=== PATIENT | male | born 1950 | race Caucasian/White ===

== ENCOUNTER 2017-04-08 18:10 | Inpatient (IN) | payer MEDICARE ==
[~2017-04-08] VITALS: Ht 160 cm; Wt 85.4 kg
--- NOTE | ~2017-04-08 | CON ---
PATIENT'S NAME: ANDRE HERMOSILLO [facility] AGE: 66 Y [address] ROOM: [place] [address] LOCATION: CU ADMIT DATE: 04/08/2017 Consultation DISCHARGE DATE: FAMILY PHYSICIAN: Lev Meraz MD ATTENDING PHYSICIAN: Stacy HARRIS DATE OF CONSULTATION: 04/09/2017 REFERRING PHYSICIAN: Christi Calvillo This is a [facility] Nephrology consultation. REASON FOR CONSULTATION: Acute kidney injury on chronic kidney disease stage 3. HISTORY OF PRESENT ILLNESS: This is a 66-year-old male patient with a past medical history of COPD, rheumatoid arthritis, chronic back pain, and chronic steroid use, as well as hypertension. The patient reportedly sustained a fall at home after complaints of weakness and fatigue over the past 2 weeks. He was reportedly unable to get up at that time and was taken to the emergency room in [place], [place]. At that time, a workup did show a creatinine of 3.03 with a baseline creatinine of 1.2 to 1.3 per the record. The patient was found to have hypotension with systolic blood pressures in the 80s to 90s as well as white blood cell count of 18,000 with bandemia. The patient was given 3 L of IV fluid, and systolic blood pressures did come up to the 130s. He was also noted to have a low urinary outputs of approximately 30 mL/h. The patient does report that he has been on chronic prednisone therapy up until approximately 2 weeks ago when he was discontinued at 4 mg daily. At that time, he was started on meloxicam for his bilateral hand swelling and joint pain. Therefore due to the patient's acute kidney injury on chronic kidney disease stage 3 with a baseline creatinine of 1.2 to 1.3 and elevation of creatinine to 3.03, now 2.4, Dr. Calvillo has been asked to consult on the patient to monitor his acute kidney injury as well as history of chronic kidney disease stage 3. The patient does deny history of any urinary complaints or history of kidney stones. PAST MEDICAL HISTORY: As listed above includin. Acute kidney injury on CKD stage 3. 2. Rheumatoid arthritis, off chronic steroid use x2 weeks. 3. Chronic steroid use. PATIENT'S NAME: ANDRE HERMOSILLO [facility] AGE: 66 Y [address] ROOM: [place] [address] LOCATION: GICU ADMIT DATE: 04/08/2017 Consultation DISCHARGE DATE: FAMILY PHYSICIAN: Lev Meraz MD ATTENDING PHYSICIAN: Stacy HARRIS 4. History of COPD. 5. Hypertension. 6. Osteoarthritis. PAST SURGICAL HISTORY: C3-C4 fusion. FAMILY HISTORY: Reviewed and is noncontributory. There is no history of kidney disease or dialysis. The patient reports his father and his mother both had coronary artery disease. SOCIAL HISTORY: The patient does have a remote history of smoking; however, he quit approximately 10 years ago. He denies any alcohol use or illicit drug use. He is retired. ALLERGIES: NONE TO MEDICATION. CURRENT HOME MEDICATIONS: 1. Valium 5 mg every night at bedtime. 2. Ultram 50 mg by mouth every 4 hours p.r.n. pain. 3. Mobic 7.5 mg daily. 4. Pramipexole 0.125 mg by mouth daily. 5. Ranitidine 150 mg daily. 6. Zanaflex 4 mg by mouth daily. 7. Anoro Ellipta 1 puff inhalation daily. 8. Zestril 30 mg by mouth daily. 9. Fluticasone 1 spray each nostril daily. 10. Azelastine 137 mcg/0.137 mL 1 spray in each nostril twice a day. 11. Albuterol HFA 1 puff inhalation q.4 hours p.r.n. shortness of breath. 12. Aspirin 81 mg daily. 13. Cetirizine 10 mg daily. REVIEW OF SYSTEMS: GENERAL: Positive for fatigue and weakness. EYES: No double vision or blurred vision. NOSE: No epistaxis or rhinorrhea. MOUTH: No gingival bleeding. THROAT: No sore throat, hoarseness, but did have a productive cough with white sputum prior to arrival. RESPIRATORY: Positive for shortness of breath and dyspnea on exertion. Positive for orthopnea. CARDIOVASCULAR: Denies any chest pain or palpitations. Denies presyncope or PATIENT'S NAME: ANDRE HERMOSILLO [facility] AGE: 66 Y [address] ROOM: [place] [address] LOCATION: [facility] ADMIT DATE: 04/08/2017 Consultation DISCHARGE DATE: FAMILY PHYSICIAN: Lev Meraz MD ATTENDING PHYSICIAN: Stacy HARRIS syncope. GASTROINTESTINAL: Denies any nausea, vomiting, or diarrhea. Denies hematemesis or hematochezia. MUSCULOSKELETAL: Does complain of bilateral lower extremity weakness. Denies any new arthralgias or myalgias other than what is listed in the HPI. NEUROLOGICAL: Positive for lower extremity weakness. No numbness or tingling noted. Residual right lower extremity weakness from a prior surgery. HEMATOLOGICAL: No bruising or easy bleeding. IMMUNOLOGICAL: No history of recent infections. PSYCHIATRIC: Denies a history of depression or anxiety. LABORATORY DATA: The pH of 7.25, pCO2 of 38, pO2 of 95, HCO3 16.4, CO2 content is 18, base excess is -10, percent sat 96%, inflow is 2 L/minute. Lactate is 1.74. ProBNP is 3564. WBC is 22.2, hemoglobin 10.9, hematocrit 35.7, and platelets are 405. Glucose is 95, BUN is 40, creatinine 2.8, sodium 137, potassium 5.4, chloride is 107, CO2 is 18, calcium 7.9, albumin is 2.2. AST is 44, ALT is 26, alkaline phosphatase is 76, total bilirubin is 0.6. INR is 1.17. IMAGING DATA: Chest x-ray performed on admission noted cardiac silhouette is enlarged. Suboptimal inspiration and accentuating bronchovascular markings. I cannot exclude vascular congestion. There is no discrete focal infiltrate, pleural effusion, or pneumothorax identified. PHYSICAL EXAMINATION: VITAL SIGNS: Blood pressure is 110/68, pulse is 96, respirations 16, temperature 97.5, saturations are 96% on 2 L nasal cannula. GENERAL: On exam, the patient is lying in the bed, in no acute distress. He is alert and oriented to person, place, and time. HEENT: His head is normocephalic and atraumatic. Eyes: Pupils are equal and react briskly to light and accommodation. EOMs are intact. Corrective lenses are warm. Nose is midline. Mouth: No gingival bleeding. Oral mucosa is dry. LUNGS: Lung sounds are diminished in the bases bilaterally. Breaths are nonlabored. The patient is on 2 L nasal cannula. CARDIOVASCULAR: Tachycardic rhythm with apical heart rate of 112 beats per minute. Unable to appreciate any murmurs, rubs, or thrills. ABDOMEN: Soft, nontender, and nondistended. Bowel sounds are positive. EXTREMITIES: Show trace to 1+ lower extremity edema bilaterally, greater on the right than the left. SKIN: Warm to touch and dry. NEUROLOGIC: Cranial nerves 2 through 12 are grossly intact. ASSESSMENT AND PLAN: PATIENT'S NAME: ANDRE HERMOSILLO [facility] AGE: 66 Y [address] ROOM: [address] [address] LOCATION: [facility] ADMIT DATE: 04/08/2017 Consultation DISCHARGE DATE: FAMILY PHYSICIAN: Lev Meraz MD ATTENDING PHYSICIAN: Stacy HARRIS 1. Acute kidney injury on chronic kidney disease stage 3. This is likely prerenal etiology secondary to hypotension as well as NSAID plus BRANDON inhibitor use. We will obtain a renal ultrasound to further evaluate for obstruction that could be attributing to his acute kidney injury. At this time, Mobic and lisinopril are currently being held. We will continue to avoid all nephrotoxins at this time. Continue IV fluid with sodium bicarbonate for hydration. We will continue to maximize perfusion to the kidneys and limit hemodynamic instability. We will place the patient on strict intake and outputs as well as daily weights and monitor his urinary outputs closely. 2. Metabolic acidosis. Continue IV bicarbonate at this time. 3. Adrenal insufficiency. IV Solu-Medrol. 4. Severe sepsis. Concerning for PNA. Further recommendations per primary team. Sputum culture is pending. This patient has been seen and assessed by Dr. Calvillo. His care is being conducted in consultation with Dr. Calvillo as well as id. VINAYAK WOMACK DNP, MARKETING WRITER FOR M RENÉE CALVILLO MD ENS/modl /[id number] d: 04/09/175 t: 04/19/17 1129, CONSULTATION REPORT
--- NOTE | ~2017-04-08 | DS ---
PATIENT'S NAME: ANDRE HERMOSILLO [facility] AGE: 66 Y [address] ROOM: [id number] [place] [address] LOCATION: GPCU ADMIT DATE: 04/08/2017 Discharge Summary DISCHARGE DATE: 04/14/2017 FAMILY PHYSICIAN: Lev Meraz MD ATTENDING PHYSICIAN: Stacy Banerjee FINAL DIAGNOSES: 1. Severe sepsis secondary to Clostridium difficile colitis. 2. Clostridium difficile colitis. 3. Acute kidney injury on stage 3 chronic kidney disease. 4. Chronic obstructive pulmonary disease exacerbation. 5. Iatrogenic volume overload. 6. Essential hypertension. 7. Restless legs syndrome. 8. Acute on chronic hypoxic respiratory failure. 9. Rheumatoid arthritis. 10. Anemia, iron deficiency. HISTORY OF PRESENT ILLNESS: Please see the history and physical dictated by Dr. Banerjee for full details of admission. In short, the patient was transferred from [place] after presenting there with temperature, elevated white blood cell count, acute kidney injury, and marginal blood pressures. He was admitted into the intensive care unit on the severe sepsis protocol and started on broad-spectrum antibiotics. LABORATORY DATA: On admission, pH was 7.25, pCO2 was 38, pO2 was 95. Sodium on admission was 137, discharge 140; potassium on admission was 5.4, discharge 4.4; chloride on admission 107, discharge 105; CO2 on admission was 18, dropped as low as 16, discharge 27; BUN on admission was 40, discharge 46; creatinine on admission was 2.8, discharge 1.7. Liver enzymes were normal. His phosphorus on admission was 1.6, discharge 3.8. Magnesium on discharge 2.1. Iron 32, total iron binding capacity 197, percent saturation 16. ProBNP on admission was 3564. White blood cell count on admission was 22,200 with 29% bands, hemoglobin 10.9, hematocrit 35.7, MCV 79.5, platelet count 405. PTT was 29, pro-time 12.3, INR 1.17. White blood cell count got as high as 27.6 on April 10, 2017, most prior discharge is 15.1. Procalcitonin on admission was 0.97. Urinalysis showed full field red blood cells. MICROBIOLOGY DATA: Stool was positive for C. difficile on April 09, 2017. Sputum cultures grew normal respiratory ricardo. Urine culture, there was no growth. Blood culture x2 were negative growth. X-RAY DATA: Chest x-ray on admission showed that enlarged cardiac silhouette, question of vascular congestion. Ultrasound of the kidneys done on admission for acute kidney injury did not show any evidence of obstructive uropathy. He PATIENT'S NAME: ANDRE HERMOSILLO [facility] AGE: 66 Y [address] ROOM: [facility] [place] [address] LOCATION: GPCU ADMIT DATE: 04/08/2017 Discharge Summary DISCHARGE DATE: 04/14/2017 FAMILY PHYSICIAN: Lev Meraz MD ATTENDING PHYSICIAN: Stacy Banerjee had akhz-au-wkoobbnw cortical thinning in the left kidney. CARDIOVASCULAR DATA: Echocardiogram returned with an ejection fraction of 70%. He had mild concentric left ventricular hypertrophy, diastolic dysfunction. Bilateral venous Dopplers were negative for DVT. HOSPITAL COURSE: The patient was admitted into the intensive care unit with a diagnosis of severe sepsis, preliminarily thought that we may be dealing with a pulmonary infection as he presented with acute on chronic respiratory failure. We started him on linezolid, Levaquin, and cefepime. Cultures were obtained. Urine antigens for strep and Legionella were obtained. A transthoracic echo was obtained for hypotension. The patient was started on heparin because there was concern that he may have a venous clot as his D- dimer was elevated in the transferring facility. Because of his kidney function, we could not do a CT scan. Venous Doppler was obtained, which was negative, and an echocardiogram returned with normal right ventricular function, so it was felt that he most likely did not have DVTs. The heparin was discontinued. He was given aggressive IV hydration because it was felt that he has had prerenal azotemia. Dr. Parra was asked to see the patient. The patient had been started on IV steroids, these were decreased. He was initially on BiPAP as well, which we eventually were able to get him converted to nasal cannula. PT and OT did work with him. Respiratory did severity score him. When his all cultures returned negative except for the C. diff returned positive, at that time all the IV antibiotics were stopped, and he was started on Flagyl and vancomycin. His steroids were quickly weaned. There was concern that he had significant edema and was given albumin with Bumex to try and mobilize that fluid. His BRANDON inhibitor and Mobic had been held from admission. He did continue to have significant diarrhea, and his creatinine did bump a little bit, so he did receive another liter of fluid. He did complain of significant muscle cramping, so his home medications, which had been held were restarted. He was tachycardic, and he was started on calcium channel yadira to help slow his heart rate. He was found to be anemic on admission. Iron studies were obtained. They did return showing he was iron deficient. Upon discussion with him, he told me that he had just recently had a colonoscopy and had 2 polyps removed and is due to see a surgeon in [place] for removal of something that they were not able to remove with the scope. He was able to be moved out of the intensive care unit. He was switched over to all oral medications. We did continue to try and mobilize fluid and work with his diet. PT and OT did work with him. It was felt that he was stable for discharge and discharged to home on 04/14/2017 with a plan to have Home Health nurses, PT and OT. DISCHARGE INSTRUCTIONS: In terms of his diet, he was advised not to eat raw vegetables and fresh fruit. He is to eat yoghurt daily. He is to keep his legs elevated. He is to see Dr. Archer in 3 to 5 days. I did speak with . PATIENT'S NAME: ANDRE HERMOSILLO [facility] AGE: 66 Y [address] ROOM: [place] [address] LOCATION: GPCU ADMIT DATE: 04/08/2017 Discharge Summary DISCHARGE DATE: 04/14/2017 FAMILY PHYSICIAN: Lev Meraz MD ATTENDING PHYSICIAN: Stacy Banerjee by phone. Home Health will draw renal panel and mag on 04/16/2017 and fax [address] to Dr. Archer. DISCHARGE MEDICATIONS: 1. Diazepam 5 mg at bedtime. 2. Tramadol 50 mg every 4 hours as needed. 3. Mobic 7.5, will be on hold. 4. Mirapex 0.125 mg daily. 5. Ranitidine 150 mg daily. 6. Zanaflex 4 mg daily. 7. Ellipta inhaler 1 puff daily. 8. Flonase nasal spray 1 spray each nostril daily. 9. Azelastine nose spray 1 spray each nostril twice daily. 10. Proventil HFA 1 puff every 4 hours as needed. 11. Aspirin 81 mg daily. 12. Zyrtec 10 mg daily. 13. Flagyl 500 mg every 8 hours to be taken through April 20, 2017. 14. Prednisone 20 mg daily through April 16, 2017; then prednisone 10 mg daily from April 17, 2017 through April 19; and then starting April 20, 2017 prednisone 5 mg daily. 15. Vancomycin 250 mg 4 times daily through April 24, 2017; then 250 mg 3 times daily for 2 days; then 250 mg 2 times daily for 2 days; then 250 mg 1 time daily for 2 days, then stop. 16. Amlodipine 5 mg 1 pill daily, this is a new medication for hypertension. 17. Dyazide 37.5/25 one tablet daily for 7 days. 18. Oral probiotic that he is told he can get one [id number] and take as directed. OVERALL PROGNOSIS: On discharge was good. RAIMUNDO HANSON MD LAW/modl /[id number] d: 04/15/17 015 t: 04/16/17 1044, DISCHARGE SUMMARY
--- NOTE | ~2017-04-08 | ECHO ---
Transthoracic Echocardiography Report (TTE) Demographics Patient Name ANDRE HERMOSILLO Date of Study 04/09/2017 Patient Number [id number] Visit Number [id number] Date of 1950 Room Number G6214 Accession Number [id number] Gender Male Age 66 year(s) Referring Myles Hernandez Power Technician Mary Mae RVT Physician MD Lavonne Kumar Physician Interpreting Mike Ward Emergency Response Technician Physician Supervising Ordering Physician Myles Hernandez MD, MD/MLP Nurse Stress Tobacco Stemmer Conclusions Summary Normal LV/RV size and systolic function. The estimated left ventricular ejection fraction is 70%. Mild concentric left ventricular hypertrophy. Diastolic flow assessment reveals impaired relaxation consistent with Grade I diastolic dysfunction . There is mild pulmonary hypertension. The pulmonary pressure (RVSP) is 43 mmHg. Small pericardial effusion. Procedure Type of Study TTE procedure:2D Echocardiogram. Procedure Date Date: 04/09/2017 Start: 04:15 PM Study Location: Inpatient Portable Technical Quality: Adequate visualization Additional Indications:evaluate right ventricular function. severe sepsis Appropriate Use Criteria: 9 Patient Status: Routine HR: 109 bpm BP: 114/61 mmHg M-Mode/2D Measurements LV Diastolic Dimension: 3.35 cm LV Systolic Dimension: 2.14 cm LV Septum Diastolic: 1.5 cm LV PW Diastolic: 1.56 cm AO Root Dimension: 2.1 cm Cardiac Output: 7.91 l/min AV Cusp Separation: 1.8 cm RV Diastolic Dimension: 2.99 cm LVOT: 2 cm LVOT VTI: 23.1 cm RV Base: 2.84 cm LV Stroke volume: 72.53 ml RV Length: 5.91 cm TAPSE: 2.64 cm TDI-S': 24.8 cm/s Doppler Measurements AV Peak Velocity: 2.11 m/s MV Peak E-Wave: 1.23 m/s AV Peak Gradient: 17.81 mmHg AV Mean Gradient: 8 mmHg LVOT Peak Velocity: 1.8 m/s PV Peak Velocity: 0.71 m/s TR Velocity:3.17 m/s PV Peak Gradient: 2.02 mmHg TR Gradient:40.2 mmHg Estimated PASP: 50.2 mmHg Estimated RAP:10 mmHg Estimated RVSP: 50 mmHg E' Septal Velocity: 0.14 m/s E' Lateral Velocity: 0.13 m/s Findings Left Ventricle Mild concentric left ventricular hypertrophy. Diastolic function indeterminate due to patient's arrhythmia. Right Ventricle Normal right ventricle structure and function. Left Atrium Normal left atrial size. Right Atrium IVC measures 1.65 cm with inspiratory collapse. Mitral Valve Trivial mitral regurgitation by color Doppler. Aortic Valve The aortic valve was not well imaged. Tricuspid Valve Mild tricuspid regurgitation by color Doppler. There is mild pulmonary hypertension. The pulmonary pressure (RVSP) is 43 mmHg. Pulmonic Valve The pulmonic valve is not well visualized. Pericardial Effusion Small pericardial effusion, anterior to RV. Miscellaneous Visualized portions of the aortic root and ascending aorta appear normal in size. Pleural Effusion No evidence of pleural effusion. Contractility Score LV regional wall motion:(0-Non visualized 1-Normal 2-Hypokinesis 3-Akinesis 4-Dyskinesis 5-Aneurysm) Signature dtt: ANGEL OLSON dtd: 04/09/17 3235 Physician Self Edit
--- NOTE | ~2017-04-08 | HP ---
PATIENT'S NAME: ANDRE HERMOSILLO [facility] AGE: 66 Y [address] ROOM: [id number] [place], [place] [address] LOCATION: [facility] ADMIT DATE: 04/08/2017 History & Physical DISCHARGE DATE: FAMILY PHYSICIAN: PHYSICIAN, UNKNOWN ATTENDING PHYSICIAN: Stacy HARRIS DATE OF SERVICE: CHIEF COMPLAINT: Severe sepsis. HISTORY OF PRESENT ILLNESS: The patient is a 66-year-old gentleman with past medical history of rheumatoid arthritis, COPD, and chronic back pain, and history of chronic steroid use, who presents here with severe sepsis from [place], [place]. The patient reports that for the past 2 weeks, he has been feeling generalized fatigue and also experiencing productive cough with clear sputum. He reports that he uses 2 L home oxygen at night, but; however, noted to be more short of breath in the past 3 days. Today, he was found down by his bed and was brought to the emergency department at [facility], because the patient was unable to get up by himself due to ongoing fatigueness. In the emergency department, series of workup was done, which include a chest x-ray with no infiltrate, lab showed white blood cell count of 18 with bandemia and a creatinine of 3 from a baseline of 1.3. The patient was also noted to have labile, the patient was given 3 L IV fluid, and the patient was maintaining systolic blood pressure in the 90s, and also noted to have low urine output and was transferred to our hospital for further care. The patient reports that he has a history of rheumatoid arthritis and has been using prednisone for the past 4 years or so, and was recently tapered off 2 weeks ago from his prednisone. He reports that ever since this prednisone cessation, he has been feeling fatigue but however, for the past few days he has been reporting some productive cough and associated shortness of breath, and worsening of fatigueness. Of note, the patient has a history of back surgery and has had C3-C4 fusion and has residual right-sided weakness and he reports that he uses four legged walker. The patient denies fever; however, temperature of 101, was recorded at outside hospital, chills, nausea, vomiting, abdominal pain, diarrhea, chest pain, and dizziness. PAST MEDICAL HISTORY: Hypertension, rheumatoid arthritis, COPD, and osteoarthritis. PAST SURGICAL HISTORY: C3-C4 fusion. PATIENT'S NAME: ANDRE HERMOSILLO [facility] AGE: 66 Y [address] ROOM: [address] [address] LOCATION: [facility] ADMIT DATE: 04/08/2017 History & Physical DISCHARGE DATE: FAMILY PHYSICIAN: PHYSICIAN, UNKNOWN ATTENDING PHYSICIAN: Stacy HARRIS FAMILY HISTORY: Reports both his father and mother had heart disease. SOCIAL HISTORY: History of smoking, but however quit smoking 10 years ago. Denies use of alcohol. He is a retired heavy truck technician. MEDICATIONS: Currently being reconciled. REVIEW OF SYSTEMS: All systems have been reviewed and are negative except for mentioned in the HPI. PHYSICAL EXAMINATION: VITAL SIGNS: Temperature 97.9, blood pressure 113/65, heart rate of 101, and saturating 91% on 2 L. GENERAL APPEARANCE: The patient lying on the bed in no acute distress. However, the patient looks toxic. No rebound. HEAD: Normocephalic, atraumatic. EYE: No discharge. Extraocular muscles intact. NOSE: No nasal discharge. ORAL CAVITY: Dry oral mucosa. CHEST: Bilateral moderate expiratory wheezing with decreased breath sounds in right lower lung field. HEART: Tachycardic. No murmurs, rubs, or gallops appreciated. ABDOMEN: Soft, nontender, and nondistended. Bowel sounds present. EXTREMITIES: Pitting edema bilaterally. Pulses present. Right-sided more edematous than the left. SKIN: Warm to touch. Mild erythematous change on right dorsum; however, nontender to touch. LATRINE CLEANER: Alert and oriented x3. Right lower extremity strength, 2-3/5. SENSORY: Intact. LABORATORY DATA: Labs drawn from outside hospital, white blood cell count of 18, hemoglobin 11, platelet of 350. Sodium of 132, potassium of 5, creatinine of 3, bicarb of 21, BUN of 40. ABG done here shows pH of 7.25, pCO2 of 38, bicarb of. 16.4, and lactate of 1.74. EKG shows sinus tachycardia with heart rate of 106. No ischemic ST and T-wave changes. ASSESSMENT AND PLAN: 1. Severe sepsis. Etiology initially thought to be secondary to cellulitis [facility] AGE: 66 Y [address] [address] LOCATION: [facility] ADMIT DATE: 04/08/2017 History & Physical DISCHARGE DATE: FAMILY PHYSICIAN: PHYSICIAN, UNKNOWN ATTENDING PHYSICIAN: Stacy HARRIS of right dorsum at the outside hospital. However, on my initial evaluation did not appreciate cellulitis of his right dorsum. The patient has some erythematous changes; however, it is not tender and is not warm. The patient have a white blood cell count of 18 with bandemia elevated lactate 1.7, and also fever of 101, with mixed metabolic and respiratory acidosis. Chest x-ray done at bedside again shows at least from my reading has not been read by Radiology right lower lobe infiltrate. We will start the patient on Levaquin, Zyvox, and cefepime. The patient has received Zosyn and Levaquin at outside hospital to continue Levaquin every 48 hours and we will start the patient on Zyvox for MRSA coverage. We will avoid nephrotoxic antibiotics such as Zosyn and vancomycin. Blood culture, sputum culture, and Urine Legionella and strep pending. We will also start the patient on steroids, we will start the patient on Solu-Medrol 60 mg t.i.d. The patient received Solu-Cortef as an outpatient at the outside hospital. However, we will change Solu- Medrol to give more anti-inflammatory effect as the patient is also in chronic obstructive pulmonary disease exacerbation. 2. Acute on chronic hypoxic respiratory failure. Etiology secondary to chronic obstructive pulmonary disease exacerbation and pneumonia. We will treat underlying etiology. We will start the patient on Solu-Medrol and q.4 DuoNeb. 3. Chronic obstructive pulmonary disease exacerbation. Continue antibiotic as noted above. We will start the patient on BiPAP 10/5 as needed. 4. Mixed metabolic and respiratory acidosis. The patient has a pH of 7.25, pCO2 of 38, and bicarb of 16.4 on ABG. We will change IV fluid to half normal with 50 mEq of bicarb. We will treat underlying etiology. We will start the patient on BiPAP for respiratory failure. 5. Acute kidney injury. Etiology most likely prerenal and severe sepsis. We will treat underlying etiology. We will start the patient on gentle hydration. Chest x-ray suggests some mild vascular congestion. We will follow the patient closely. Also acquire renal ultrasound and follow urine output every hour. To maintain the patient normotensive during stay. 6. Community-acquired pneumonia. Please see problem #1. 7. Lower extremity swelling. The patient has lower extremity swelling right greater than left and also on the phase of D-dimer elevation that was noted at the outside hospital for we will acquire venous Doppler to rule out DVT. Also PE is entertained as the patient has a risk factor of for immobilization for the past 2 weeks. Elevated D-dimer and now presenting with hypoxic respiratory failure. The patient is noted to be tachycardic. We will start the patient on heparin drip and acquire venous Doppler and when the patient's kidney function improves, we will entertain CT chest with angiogram if clinically needed. 8. Acute COPD exacerbation secondary to community-acquired pneumonia. On bronchodilator and steroids. PATIENT'S NAME: ANDRE HERMOSILLO [facility] AGE: 66 Y [address] ROOM: [place] [address] LOCATION: [facility] ADMIT DATE: 04/08/2017 History & Physical DISCHARGE DATE: FAMILY PHYSICIAN: PHYSICIAN, UNKNOWN ATTENDING PHYSICIAN: Stacy HRARIS 9. Rheumatoid arthritis. Stable. We will start the patient on steroids. 10. Adrenal insufficiency secondary to recent withdrawal of prednisone after long-term of prednisone use. On Solu-Medrol. Greater than 30 minutes critical care was spent on patient care. The patient came in with severe sepsis with borderline hypotension, now currently stable. Continue IV fluid, steroids and empiric antibiotic. Assessment and plan was discussed with nursing staff and patient. The patient question fully answered. Code status on admission, full code. Also, discussed about heparin use and the risk and benefit of heparin use. The patient fully understands the risk. We will start the patient on heparin drip. MD THEODORA DALEY/modl /[id number] D: 225 T: HISTORY & PHYSICAL
--- NOTE | ~2017-04-08 | ENPV ---
Vascular Lower Extremities DVT Study Procedure Demographics Patient Name ANDRE HERMOSILLO Date of Study 04/09/2017 Patient Number [id number] Gender Male Date of 1950 Age 66 Visit Number [id number] Height 63 Accession Number [id number] Weight 184 Referring Lavonne Kumar Interpreting Erick Martines MD Physician Physician Physician Ordering Physician Lavonne Kumar Field Mechanic/Site Lead Restrictive Preparation Operator Chuck Louie, RVT Conclusions Summary No evidence of deep vein thrombosis in bilateral lower extremities. Bilateral peroneal veins were not visualized secondary to edema. Pulsatile and diminished venous Doppler is noted throughout bilateral lower extremities. Procedure Type of Study: Veins:Lower Extremities DVT Study, Venous Duplex Lower Extremity Bilateral. Indications for Study:Bilateral lower extremity edema. Appropriate Use Criteria:8 Patient Status:Routine. Study Location:Inpatient Portable. Technical Quality:Limited visualization due to edema. Velocities are measured in cm/s ; Diameters are measured in cm Right Lower Extremities DVT Study Measurements Right 2D and Doppler Measurements +---------+ + + + +------+--------+ !Location !Visualized!Compressibility!Thrombosis!Signal !Reflux!Reflux ! ! ! ! ! ! ! !(sec) ! +---------+ + + + +------+--------+ !GSV Thigh!Yes !Yes !None !Pulsatile !No ! ! +---------+ + + + +------+--------+ !Common !Yes !Yes !None !Pulsatile !No ! ! !Femoral ! ! ! ! ! ! ! +---------+ + + + +------+--------+ !Prox !Yes !Yes !None !Pulsatile !No ! ! !Femoral ! ! ! ! ! ! ! +---------+ + + + +------+--------+ !Mid !Yes !Yes !None !Diminished!No ! ! !Femoral ! ! ! ! ! ! ! +---------+ + + + +------+--------+ !Dist !Yes !Yes !None !Phasic !No ! ! !Femoral ! ! ! ! ! ! ! +---------+ + + + +------+--------+ !Popliteal!Yes !Yes !None !Phasic !No ! ! +---------+ + + + +------+--------+ !Gastroc !Yes !Yes !None ! ! ! ! +---------+ + + + +------+--------+ !PTV !Yes !Yes !None ! ! ! ! +---------+ + + + +------+--------+ !Peroneal !No ! ! ! ! ! ! +---------+ + + + +------+--------+ Left Lower Extremities DVT Study Measurements Left 2D and Doppler Measurements +---------+ + + + +------+--------+ !Location !Visualized!Compressibility!Thrombosis!Signal !Reflux!Reflux ! ! ! ! ! ! ! !(sec) ! +---------+ + + + +------+--------+ !GSV Thigh!Yes !Yes !None !Phasic !No ! ! +---------+ + + + +------+--------+ !Common !Yes !Yes !None !Diminished!No ! ! !Femoral ! ! ! ! ! ! ! +---------+ + + + +------+--------+ !Prox !Yes !Yes !None !Pulsatile !No ! ! !Femoral ! ! ! ! ! ! ! +---------+ + + + +------+--------+ !Mid !Yes !Yes !None !Diminished!No ! ! !Femoral ! ! ! ! ! ! ! +---------+ + + + +------+--------+ !Dist !Yes !Yes !None !Pulsatile !No ! ! !Femoral ! ! ! ! ! ! ! +---------+ + + + +------+--------+ !Popliteal!Yes !Yes !None !Phasic !No ! ! +---------+ + + + +------+--------+ !Gastroc !Yes !Yes !None ! ! ! ! +---------+ + + + +------+--------+ !PTV !Yes !Yes !None ! ! ! ! +---------+ + + + +------+--------+ !Peroneal !No ! ! ! ! ! ! +---------+ + + + +------+--------+ Signature dtt: NAVEED WALKER dtd: 04/09/17 1637 Physician Self Miriam
[2017-04-08 20:06] LABS: BICARBONATE 16.4 mmol/L (18.0-23.0); PCO2 38 mmHg (35-45); PO2 95 mmHg (80-90)
[2017-04-08 21:46] LABS: BICARBONATE 17.2 mmol/L (18.0-23.0); PCO2 41 mmHg (35-45)
[2017-04-08 21:47] LABS: PO2 129 mmHg (80-90)
[2017-04-08 21:50] LABS: HEMATOCRIT 35.7 % (37.0-53.0); HEMOGLOBIN 10.9 g/dL (11.0-16.0); MCH 24.3 pg (27.0-34.0); MCHC 30.5 gm/dL (32.0-36.5); MCV 79.5 fl (83.0-98.0); PLATELET COUNT 405 K/uL (150-450); RBC 4.49 M/uL (3.50-5.50); WBC 22.2 K/uL (4.0-11.0)
[2017-04-08 21:55] LABS: INR - (THERAPEUTIC) 1.17 (0.92-1.07); PROTIME 12.3 SECONDS (9.8-11.4); PTT 29 SECONDS (25-32)
[2017-04-08 22:04] LABS: ALBUMIN 2.2 gm/dL (3.5-5.0); ANION GAP 17.4 (10.0-19.0); CALCIUM 7.9 mg/dL (8.5-10.5); CREATININE 2.8 mg/dL (0.6-1.3); POTASSIUM 5.4 mMol/L (3.7-5.1); TOTAL BILIRUBIN 0.6 mg/dL (0.0-1.5); TOTAL PROTEIN 6.3 g/dL (6.0-8.4)
[2017-04-08 22:22] LABS: LYMPHOCYTE # 0.4 K/uL (0.8-4.0); LYMPHOCYTE % 2 %; MONOCYTE # 0.4 K/uL (0.0-1.0); SEGMENTED NEUTROPHIL # 15.1 K/uL (1.4-9.0); SEGMENTED NEUTROPHIL % 68 %
[2017-04-08 22:23] LABS: ABSOLUTE NEUTROPHIL CT (ANC) 21.5 K/uL (1.4-9.0); BANDED NEUTROPHIL # 6.4 K/uL (0.0-0.1); BANDED NEUTROPHILS % 29 %
[2017-04-08 23:12] LABS: BILIRUBIN URINE NEGATIVE (NEGATIVE); BLOOD URINE 250 /UL (NEGATIVE); COLOR URINE YELLOW (YELLOW); GLUCOSE URINE NEGATIVE (NEGATIVE); KETONE URINE 15 mg/dL (NEGATIVE); LEUKOCYTES URINE 25 /UL (NEGATIVE); NITRITE URINE NEGATIVE (NEGATIVE); PROTEIN URINE 100 mg/dL (NEGATIVE); SPEC GRAVITY URINE 1.025 (1.003-1.035); TURBIDITY URINE 1+ (CLEAR); UROBILINOGEN URINE NORMAL (NORMAL)
[2017-04-08 23:28] LABS: BACTERIA URINE FEW (NEGATIVE); EPITHELIAL URINE 0-2 #/HPF (NEGATIVE); RBC URINE FULL FIELD #/HPF (NEGATIVE)
[2017-04-09 01:39] LABS: PCO2 43 mmHg (35-45); PO2 56 mmHg (80-90)
[2017-04-09 05:01] LABS: HEMATOCRIT 34.4 % (37.0-53.0); HEMOGLOBIN 10.4 g/dL (11.0-16.0); MCH 24.3 pg (27.0-34.0); MCHC 30.2 gm/dL (32.0-36.5); MCV 80.4 fl (83.0-98.0); RBC 4.28 M/uL (3.50-5.50)
[2017-04-09 05:06] LABS: PLATELET COUNT 317 K/uL (150-450); WBC 18.4 K/uL (4.0-11.0)
[2017-04-09 05:20] LABS: CALCIUM 7.7 mg/dL (8.5-10.5); CREATININE 2.4 mg/dL (0.6-1.3); POTASSIUM 5.1 mMol/L (3.7-5.1); TOTAL PROTEIN 5.8 g/dL (6.0-8.4)
[2017-04-09 05:23] LABS: ANION GAP 17.1 (10.0-19.0); TOTAL BILIRUBIN 0.4 mg/dL (0.0-1.5)
[2017-04-09 05:38] LABS: ABSOLUTE NEUTROPHIL CT (ANC) 17.7 K/uL (1.4-9.0); BANDED NEUTROPHIL # 3.5 K/uL (0.0-0.1); BANDED NEUTROPHILS % 19 %; LYMPHOCYTE # 0.7 K/uL (0.8-4.0); LYMPHOCYTE % 4 %; SEGMENTED NEUTROPHIL # 14.2 K/uL (1.4-9.0); SEGMENTED NEUTROPHIL % 77 %
[2017-04-09] MEDS ORDERED: VALIUM5 MG PO (09:11)
[2017-04-09] MEDS ORDERED: MOBIC7.5 MG PO (09:12)
[2017-04-09] MEDS ORDERED: ULTRAM50 MG PO (09:12)
[2017-04-09] MEDS ORDERED: PRAMIPEXOLE0.125 MG PO (09:13)
[2017-04-09] MEDS ORDERED: ACID CONTROL150 MG PO (09:13)
[2017-04-09] MEDS ORDERED: ZESTRIL30 MG PO (09:14)
[2017-04-09] MEDS ORDERED: ANORO ELLIPTA1 EACH INH (09:14)
[2017-04-09] MEDS ORDERED: ZANAFLEX4 MG PO (09:14)
[2017-04-09] MEDS ORDERED: FLONASE 50 MCG/16 GM NOSE (09:15)
[2017-04-09] MEDS ORDERED: AZELASTINE137 MCG/0. NOSE (09:16)
[2017-04-09] MEDS ORDERED: ZYRTEC10 MG PO (09:17)
[2017-04-09] MEDS ORDERED: ASPIR 8181 MG PO (09:17)
[2017-04-09] MEDS ORDERED: PROVENTIL OR V6.7 GM INH (09:17)
[2017-04-09 16:34] LABS: CALCIUM 7.1 mg/dL (8.5-10.5); CREATININE 1.7 mg/dL (0.6-1.3)
[2017-04-10 05:50] LABS: HEMATOCRIT 32.4 % (37.0-53.0); HEMOGLOBIN 10.5 g/dL (11.0-16.0); MCH 24.8 pg (27.0-34.0); MCHC 32.4 gm/dL (32.0-36.5); MCV 76.6 fl (83.0-98.0); MPV 9.1 fl (9.4-12.4); RBC 4.23 M/uL (3.50-5.50)
[2017-04-10 05:52] LABS: PLATELET COUNT 450 K/uL (150-450); WBC 27.6 K/uL (4.0-11.0)
[2017-04-10 06:09] LABS: ANION GAP 11.3 (10.0-19.0); CALCIUM 7.5 mg/dL (8.5-10.5); CREATININE 1.6 mg/dL (0.6-1.3); PHOSPHORUS 2.2 mg/dL (2.5-4.9); POTASSIUM 4.3 mMol/L (3.7-5.1)
[2017-04-10 06:10] LABS: ALBUMIN 1.9 gm/dL (3.5-5.0)
[2017-04-10 07:01] LABS: ABSOLUTE NEUTROPHIL CT (ANC) 27.3 K/uL (1.4-9.0); BANDED NEUTROPHIL # 5.2 K/uL (0.0-0.1); BANDED NEUTROPHILS % 19 %; LYMPHOCYTE # 0.3 K/uL (0.8-4.0); LYMPHOCYTE % 1 %; SEGMENTED NEUTROPHIL # 22.1 K/uL (1.4-9.0); SEGMENTED NEUTROPHIL % 80 %
[2017-04-10 16:26] LABS: ANION GAP 11.9 (10.0-19.0); POTASSIUM 3.9 mMol/L (3.7-5.1)
[2017-04-11 04:49] LABS: BASOPHIL # 0.1 K/uL (0.0-0.2); BASOPHIL % 0.2 %; HEMATOCRIT 32.8 % (37.0-53.0); HEMOGLOBIN 10.8 g/dL (11.0-16.0); IMMATURE GRANULOCYTE # 0.9 K/uL (0.0-0.3); IMMATURE GRANULOCYTE % 3.9 %; LYMPHOCYTE # 0.6 K/uL (0.8-4.0); LYMPHOCYTE % 2.5 %; MCH 25.1 pg (27.0-34.0); MCHC 32.9 gm/dL (32.0-36.5); MCV 76.3 fl (83.0-98.0); MONOCYTE # 0.5 K/uL (0.0-1.0); MONOCYTE % 2.3 %; MPV 9.5 fl (9.4-12.4); NEUTROPHIL # (ANC) 20.7 K/uL (1.4-9.0); NEUTROPHIL % 91.1 %; NRBC % 0.2 /100WBC (0-0.00); PLATELET COUNT 469 K/uL (150-450); RDW-CV 15.2 % (11.9-14.6)
[2017-04-11 04:50] LABS: WBC 22.7 K/uL (4.0-11.0)
[2017-04-11 05:03] LABS: ALBUMIN 2.3 gm/dL (3.5-5.0); ANION GAP 11.9 (10.0-19.0); CALCIUM 7.7 mg/dL (8.5-10.5); CREATININE 1.8 mg/dL (0.6-1.3); POTASSIUM 3.9 mMol/L (3.7-5.1)
[2017-04-11 05:04] LABS: PHOSPHORUS 1.6 mg/dL (2.5-4.9)
[2017-04-12 04:16] LABS: HEMATOCRIT 36.9 % (37.0-53.0); MCH 24.8 pg (27.0-34.0); MCHC 32.5 gm/dL (32.0-36.5); MCV 76.2 fl (83.0-98.0); MPV 9.5 fl (9.4-12.4); PLATELET COUNT 507 K/uL (150-450); RBC 4.84 M/uL (3.50-5.50); RDW-CV 15.5 % (11.9-14.6)
[2017-04-12 04:17] LABS: WBC 22.4 K/uL (4.0-11.0)
[2017-04-12 04:30] LABS: ALBUMIN 2.4 gm/dL (3.5-5.0); ANION GAP 12.2 (10.0-19.0); CALCIUM 7.8 mg/dL (8.5-10.5); CREATININE 1.6 mg/dL (0.6-1.3); PHOSPHORUS 2.3 mg/dL (2.5-4.9); POTASSIUM 4.2 mMol/L (3.7-5.1)
[2017-04-12 04:41] LABS: ABSOLUTE NEUTROPHIL CT (ANC) 20.6 K/uL (1.4-9.0); BANDED NEUTROPHILS % 9 %; LYMPHOCYTE # 1.1 K/uL (0.8-4.0); LYMPHOCYTE % 5 %; SEGMENTED NEUTROPHIL # 18.6 K/uL (1.4-9.0); SEGMENTED NEUTROPHIL % 83 %
[2017-04-13 20:43] LABS: ALBUMIN 3.8 gm/dL (3.5-5.0); ANION GAP 14.6 (10.0-19.0); CALCIUM 8.6 mg/dL (8.5-10.5); CREATININE 1.6 mg/dL (0.6-1.3); PHOSPHORUS 2.4 mg/dL (2.5-4.9); POTASSIUM 4.6 mMol/L (3.7-5.1)
[2017-04-14 05:43] LABS: ALBUMIN 3.6 gm/dL (3.5-5.0); ANION GAP 12.4 (10.0-19.0); CALCIUM 8.4 mg/dL (8.5-10.5); CREATININE 1.7 mg/dL (0.6-1.3); PHOSPHORUS 3.8 mg/dL (2.5-4.9); POTASSIUM 4.4 mMol/L (3.7-5.1)
[2017-04-14 06:42] LABS: BASOPHIL # 0.1 K/uL (0.0-0.2); BASOPHIL % 0.6 %; HEMATOCRIT 38.6 % (37.0-53.0); HEMOGLOBIN 12.3 g/dL (11.0-16.0); IMMATURE GRANULOCYTE # 0.6 K/uL (0.0-0.3); IMMATURE GRANULOCYTE % 4.2 %; LYMPHOCYTE # 0.9 K/uL (0.8-4.0); LYMPHOCYTE % 5.7 %; MCH 24.3 pg (27.0-34.0); MCHC 31.9 gm/dL (32.0-36.5); MCV 76.1 fl (83.0-98.0); MONOCYTE % 6.5 %; MPV 9.1 fl (9.4-12.4); NEUTROPHIL # (ANC) 12.6 K/uL (1.4-9.0); NRBC % 0 /100WBC (0-0.00); PLATELET COUNT 483 K/uL (150-450); RBC 5.07 M/uL (3.50-5.50); RDW-CV 15.8 % (11.9-14.6); WBC 15.1 K/uL (4.0-11.0)
[2017-04-14] MEDS ORDERED: FLAGYL500 MG PO (10:53)
[2017-04-14] MEDS ORDERED: DELTASONE10 MG PO (10:56)
[2017-04-14] MEDS ORDERED: DELTASONE20 MG PO (10:56)
[2017-04-14] MEDS ORDERED: DELTASONE5 MG PO (10:57)
[2017-04-14] MEDS ORDERED: VANCOCIN ORAL250 MG PO (11:02)
[2017-04-14] MEDS ORDERED: NORVASC5 MG PO (11:06)
[2017-04-14] MEDS ORDERED: DYAZIDE 37.5-21 EACH PO (11:08)
[2017-04-14] MEDS ORDERED: PROBIOTIC1 EAC1 PO (11:09)
== END 2017-04-14 11:55 | disposition home health service (06) | DRG 871 ==
LOC: GICU 19:25 → GPCU 04-10 11:29
PROVIDERS: Internal Medicine; Internal Medicine Nephrology; ADMIT Internal Medicine
DX: A41.9 Sepsis, unspecified organism (principal); J18.9 Pneumonia, unspecified organism; J96.21 Acute and chronic respiratory failure with hypoxia; A04.7 Enterocolitis due to Clostridium difficile; N17.9 Acute kidney failure, unspecified; N18.3 Chronic kidney disease, stage 3 (moderate); J44.1 Chronic obstructive pulmonary disease with (acute) exacerbation; E27.40 Unspecified adrenocortical insufficiency; J44.0 Chronic obstructive pulmonary disease with (acute) lower respiratory infection; E87.79 Other fluid overload; G25.81 Restless legs syndrome; R65.20 Severe sepsis without septic shock; R60.0 Localized edema; M06.9 Rheumatoid arthritis, unspecified; G25.1 Drug-induced tremor; T38.0X5A Adverse effect of glucocorticoids and synthetic analogues, initial encounter; E87.5 Hyperkalemia; D50.9 Iron deficiency anemia, unspecified; Z79.82 Long term (current) use of aspirin; Z87.891 Personal history of nicotine dependence; Z79.51 Long term (current) use of inhaled steroids
CPT/HCPCS: C9113; J0360; J0692; J1644; J1940; J2020; J2920; J2930; J7030; J7040; J7120; J7512; P9047

== ENCOUNTER → 2017-04-08 | Outpatient (CLI) | payer SELFPAY ==
[~2017-04-08] MED LIST: ACID CONTROL150 MG PO; ANORO ELLIPTA1 EACH INH; ASPIR 8181 MG PO; AZELASTINE137 MCG/0. NOSE; DELTASONE10 MG PO; DELTASONE20 MG PO; DELTASONE5 MG PO; DYAZIDE 37.5-21 EACH PO; FLAGYL500 MG PO; FLONASE 50 MCG/16 GM NOSE; MOBIC7.5 MG PO; NORVASC5 MG PO; PRAMIPEXOLE0.125 MG PO; PROBIOTIC1 EAC1 PO; PROVENTIL OR V6.7 GM INH; ULTRAM50 MG PO; VALIUM5 MG PO; VANCOCIN ORAL250 MG PO; ZANAFLEX4 MG PO; ZESTRIL30 MG PO; ZYRTEC10 MG PO
== END | disposition disaster alternative care site (69) ==
LOC: GAIR 18:54
DX: A41.9 Sepsis, unspecified organism (principal); R06.02 Shortness of breath; I12.9 Hypertensive chronic kidney disease with stage 1 through stage 4 chronic kidney disease, or unspecified chronic kidney disease; N18.9 Chronic kidney disease, unspecified; J44.9 Chronic obstructive pulmonary disease, unspecified; M06.9 Rheumatoid arthritis, unspecified; Z79.82 Long term (current) use of aspirin; Z79.2 Long term (current) use of antibiotics; Z79.1 Long term (current) use of non-steroidal anti-inflammatories (NSAID); Z79.899 Other long term (current) drug therapy
CPT/HCPCS: A0422; A0431; A0436